=== PATIENT | female | born 1985 | race Hispanic/Latino ===

== ENCOUNTER 2021-04-15 19:18 | Emergency (ER) | payer SELFPAY ==
[2021-04-15] MEDS ORDERED: Ibuprofen 200 MG TAB ONE (19:37)
[2021-04-15] MEDS ORDERED: Acetaminophen 500 MG TAB ONE (19:37)
[2021-04-15] MEDS ORDERED: Amoxicillin/Potassium Clav 875 MG TAB ONE (19:50)
== END 2021-04-15 19:53 | disposition home or self-care (01) ==
LOC: CSHERS 19:18
DX: K04.7 Periapical abscess without sinus (principal)
CPT/HCPCS: 99283

== ENCOUNTER 2021-09-12 17:55 | Emergency (ER) | payer SELFPAY | END 2021-09-12 19:50 | disposition home or self-care (01) | LOC: CSHERS 17:55 | DX: U07.1 COVID-19 (principal) | CPT/HCPCS: 87804; 99283; U0003; U0005 ==

== ENCOUNTER 2022-03-16 20:54 | Emergency (ER) | payer SELFPAY ==
[2022-03-16] MEDS ORDERED: Ketorolac Tromethamine 30 MG/ML VIAL ONE (21:50)
== END 2022-03-16 22:55 | disposition home or self-care (01) ==
LOC: CSHERS 20:54
DX: S83.004A Unspecified dislocation of right patella, initial encounter (principal); Z87.891 Personal history of nicotine dependence; X58.XXXA Exposure to other specified factors, initial encounter; Y93.72 Activity, wrestling
CPT/HCPCS: 96372; J1885